=== PATIENT | male | born 1965 | race Caucasian/White ===

== ENCOUNTER 2018-02-24 13:31 | Emergency (ER) | payer OTHER ==
[~2018-02-24] VITALS: Ht 172.7 cm; Wt 83.6 kg
[2018-02-24 13:48] VITALS: Ht 172.7 cm; Wt 83.6 kg
[2018-02-24 15:02] LABS: BASOPHILS 0.2 % (0-2); EOSINOPHILS 1.2 % (0-7); HEMATOCRIT 47.6 % (42.0-54.0); HEMOGLOBIN 16.3 g/dL (13.5-17.5); IMMATURE GRANULOCYTES 0.6 % (0-5); LYMPHOCYTES 17.1 % (15-50); MCH 31.6 pg (26.0-34.0); MCHC 34.2 g/dL (31.0-37.0); MCV 92.2 fL (80.0-100.0); MEAN PLATELET VOLUME 10.1 fL (7.4-10.4); MONOCYTES 5.4 % (2-11); NEUTROPHILS 75.5 % (40-80); RBC 5.16 10x6/uL (4.20-6.10); RDW 14.9 % (11.5-14.5); WBC 15.2 10x3/uL (4.8-10.8)
[2018-02-24 15:04] LABS: PLATELET COUNT 249 10x3/uL (130-400)
[2018-02-24 15:27] LABS: ALBUMIN 3.3 g/dL (3.4-5.0); ALKALINE PHOSPHATASE 110 U/L (46-116); ALT (SGPT) 46 U/L (10-68); BILIRUBIN - TOTAL 0.28 mg/dL (0.2-1.3); CALC OSMOLALITY 277 mosm/kg (275-300); CALCIUM 8.9 mg/dL (8.5-10.1); CARBON DIOXIDE 23.8 mmol/L (21.0-32.0); CHLORIDE - SERUM 101 mmol/L (98-107); CREATININE - SERUM 0.8 mg/dL (0.6-1.3); GLUCOSE 117 mg/dL (74-106); POTASSIUM - SERUM 3.8 mmol/L (3.5-5.1); PROTEIN - SERUM 7.1 g/dL (6.4-8.2); SODIUM 138 mmol/L (136-145); UREA NITROGEN 14 mg/dL (7-18); eGFR NON AFRICAN AMERICAN > 90 mL/min (90-120)
[2018-02-24] MEDS ORDERED: VIBRAMYCIN 100100 MG PO (17:46)
[2018-02-24] MEDS ORDERED: TORADOL10 MG PO (17:46)
[2018-02-24 18:30] VITALS: BP 154/86
== END 2018-02-24 18:30 | disposition home or self-care (01) ==
LOC: D.ER 13:31
PROVIDERS: Emergency Medicine
DX: L02.415 Cutaneous abscess of right lower limb (principal); Z89.511 Acquired absence of right leg below knee; I10 Essential (primary) hypertension; F17.200 Nicotine dependence, unspecified, uncomplicated

== ENCOUNTER 2018-04-01 15:55 | Inpatient (IN) | payer OTHER ==
[~2018-04-01] VITALS: Ht 172.7 cm; Wt 83.9 kg
[~2018-04-01 15:55] MED LIST: TORADOL10 MG PO; VIBRAMYCIN 100100 MG PO
[2018-04-01] MEDS ORDERED: ENTOCORT EC3 MG PO (16:49)
[2018-04-01] MEDS ORDERED: FOLIC ACID1 MG PO ×2 (16:49→20:18)
[2018-04-01] MEDS ORDERED: VITAMIN B-12100 MCG PO (16:49)
[2018-04-01] MEDS ORDERED: BAYER ASPIRIN325 MG (16:49)
[2018-04-01] MEDS ORDERED: LIDODERM 5 %1 PATCH TRANSDERM (16:50)
[2018-04-01] MEDS ORDERED: LIDOCAINE50 GM TOPICAL (16:50)
[2018-04-01] MEDS ORDERED: NEURONTIN800 MG PO ×2 (16:50→20:16)
[2018-04-01] MEDS ORDERED: LISINOPRIL20 MG PO (16:50)
[2018-04-01] MEDS ORDERED: TOZAL SOFTGEL1 EACH PO (16:51)
[2018-04-01] MEDS ORDERED: ROBAXIN500 MG PO ×2 (16:51→20:18)
[2018-04-01] MEDS ORDERED: OMEPRAZOLE40 MG PO ×2 (16:51→20:19)
[2018-04-01] MEDS ORDERED: TRAZODONE HCL150 MG PO ×2 (16:52→20:13)
[2018-04-01 17:00] VITALS: BP 130/89
[2018-04-01 17:50] LABS: BASOPHILS 0.1 % (0-2); HEMOGLOBIN 16.3 g/dL (13.5-17.5); IMMATURE GRANULOCYTES 0.4 % (0-5); LYMPHOCYTES 14.5 % (15-50); MCHC 35.4 g/dL (31.0-37.0); MCV 90.4 fL (80.0-100.0); MEAN PLATELET VOLUME 10.7 fL (7.4-10.4); MONOCYTES 9.4 % (2-11); NEUTROPHILS 74.6 % (40-80); PLATELET COUNT 261 10x3/uL (130-400); RBC 5.09 10x6/uL (4.20-6.10); RDW 14.6 % (11.5-14.5); WBC 15.2 10x3/uL (4.8-10.8)
[2018-04-01 18:00] VITALS: BP 111/82
[2018-04-01 18:06] LABS: ALBUMIN 3.1 g/dL (3.4-5.0); ALKALINE PHOSPHATASE 115 U/L (46-116); ALT (SGPT) 37 U/L (10-68); BILIRUBIN - TOTAL 0.36 mg/dL (0.2-1.3); CALC OSMOLALITY 276 mosm/kg (275-300); CALCIUM 8.5 mg/dL (8.5-10.1); CARBON DIOXIDE 24.7 mmol/L (21.0-32.0); CHLORIDE - SERUM 100 mmol/L (98-107); CREATININE - SERUM 0.9 mg/dL (0.6-1.3); GLUCOSE 107 mg/dL (74-106); POTASSIUM - SERUM 3.7 mmol/L (3.5-5.1); SODIUM 138 mmol/L (136-145); UREA NITROGEN 15 mg/dL (7-18); eGFR NON AFRICAN AMERICAN > 90 mL/min (90-120)
--- NOTE | 2018-04-01 18:39 | NUR ---
PATIENTS RIGHT LOWER LEG CLEANED WITH WOUND CLENSER, DRESSED WITH TELFA X 3 AND PORTILLO.
--- NOTE | 2018-04-01 19:19 | NUR ---
REC'D FROM ER DEPT PER STRETCHER TO ROOM 2217 A 52 Y/O W/M PER SERVICES DR. ELIZABETH WITH MRSA INFECTION TO RT STUMP PT IS A RT BKA AMPUTATION WITH RED SORES AND SCABS NOTED. LARGE DRESSING NOTED TO STUMP WITH SMALL AMOUNT SEROUS DRAINAGE.. ASSESSMENT PER ADMIT PACKET. IV PATENT LEFT HAND OF NS AT 100CC'S/HR SITE CLEAR.
[2018-04-01] MEDS ORDERED: UCERIS PO (20:10)
[2018-04-01] MEDS ORDERED: ACETAMINOPHEN325 MG PO (20:12)
[2018-04-01] MEDS ORDERED: METHOTREXATE2.5 MG SQ (20:16)
[2018-04-01] MEDS ORDERED: LISINOPRIL40 MG PO (20:18)
--- NOTE | 2018-04-01 21:00 | NUR ---
REQUESTING SOME FOOD. SANDWICH TRAY AND SODA GIVEN TO PATIENT 100% CONSUMED.
[2018-04-01 21:36] VITALS: BP 121/87
[2018-04-01 23:07] VITALS: BP 121/87; BMI 28.1
--- NOTE | 2018-04-02 | NUR ---
EYES CLOSED RESPIRATIONS WITH EASE AND UNLABORED. SR UP X2 CALL LIGHT WITHIN REACH.
[2018-04-02 00:36] VITALS: BP 101/66
[2018-04-02 05:44] VITALS: BP 134/84
--- NOTE | 2018-04-02 06:49 | NUR ---
MEDS GIVEN PER MAR.
--- NOTE | 2018-04-02 07:12 | NUR ---
PATIENT RESTING WITH NO NEEDS VOICED, CL IN REACH
[2018-04-02 08:55] VITALS: BP 105/70
[2018-04-02 11:16] VITALS: Ht 172.7 cm; Wt 83.9 kg
--- NOTE | 2018-04-02 12:15 | NUR ---
PATIENT REFUSES SCD. HE IS UP INDEPENDENTLY TO WHEELCHAIR AND LOVENOX IS GIVEN
[2018-04-02 14:11] VITALS: BP 117/54
[2018-04-02 20:00] VITALS: BP 125/60
--- NOTE | 2018-04-02 23:05 | NUR ---
PT C/O RIGHT LEG PAIN 10/20. GAVE PERCOCET-5 AND ROBAXIN. ASSESSMENT COMPLETE PER FLOW-SHEET. DISCUSSED ISOLATION PRECAUTIONS WITH PT. NO OTHER NEEDS. WILL CONTINUE TO MONITOR.
[2018-04-03] VITALS: BP 126/77
[2018-04-03 04:00] VITALS: BP 106/69
--- NOTE | 2018-04-03 07:36 | HP ---
PATIENT: EUGENE ANN MEDICAL RECORD: [id number] ACCOUNT: [id number] LOCATION:[facility] : 65 ADMISSION DATE: 04/01/18 PCP: GONZALO, DOCTOR HISTORY AND PHYSICAL EXAMINATION REASON FOR ADMISSION: Fever and leg infections. 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 He said he has had trouble with some intermittent papules on his right lower extremity. Last 10 days, this has become more prominent, went to the [facility] clinic yesterday with low-grade fever to 101. He had some small abscesses on his legs and they sent him to the ED. Dr. Matias drained all of these in the ED and cultures were obtained and he was admitted for IV antibiotics. The patient states he had a similar episode a month or so ago and was treated in the Emergency Room and discharged. Denies any history of MRSA or recurrent infection. He had osteomyelitis of his right lower extremity years ago that required [id number] amputation. PAST MEDICAL HISTORY: Enteritis, small-bowel obstruction, terminal ileitis, chronic pain syndrome from left leg crush injury, history of seizure disorder, tobacco abuse, essential hypertension, GERD, osteoarthritis, neuropathy, rheumatoid arthritis. PAST SURGICAL HISTORY: Had history of loose bony pelvis. He had history of right foot surgery, developed osteomyelitis and required right BKA. He had history of spinal surgery and surgery for a left leg crush injury. SOCIAL HISTORY: He smokes 1 pack a day, used to smoke marijuana, was on methadone in the past for chronic pain, but off that now. 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 He has several children living in town. He is . He drinks 3-4 beers a day, but does not have an alcohol problem and has smoked marijuana in the past, none recently. FAMILY HISTORY: Father is living in good health. Mother in her 50s of unknown cause. HOME MEDICATIONS: Rheumatrex 2.5 mg one IU subQ weekly; Robaxin 500 mg p.o. b.i.d.; lisinopril 40 mg a day; aspirin 325 mg a day; gabapentin 800 mg t.i.d.; trazodone 150 mg p.o. at bedtime for sleep; omeprazole 40 mg p.o. daily; Entocort EC 3 mg capsule 3 p.o. daily; B12 100 mcg tablet p.o. daily; folic acid 1 mg p.o. daily; multivitamin 3 caps p.o. daily; Uceris 8 units p.o. daily. ALLERGIES: None known. REVIEW OF SYSTEMS: GENERAL: He had felt well until the last few days, he got low-grade fever yesterday, had good appetite. HEENT: No recent visual change, sinus congestion, or sore throat. RESPIRATORY: No SOB or cough. CARDIAC: No chest pain, PND, orthopnea, claudication, palpitations, or history of heart disease. GASTROINTESTINAL: No nausea, vomiting, change in stools or blood per rectum. GENITOURINARY: Nocturia once nightly. No dysuria. ENDOCRINE: Denies polyuria, polydipsia, heat or cold intolerance. HISTORY AND PHYSICAL [id number] EUGENE ANN NEUROLOGIC: No history of stroke. Has remote history of seizures, but none recently. He said his memory is poor. PSYCHIATRIC: Has intermittent depressed mood. INTEGUMENT: Red papules and pustules on his lower extremity over the last 10 days. MUSCULOSKELETAL: He has chronic lumbago, he had left and right lower leg pain. PHYSICAL EXAMINATION: VITAL SIGNS: Heart rate was 125, temperature is 99.0 Fahrenheit orally, respirations are 18, blood pressure is 141/82, O2 sat of 97%. GENERAL: The patient is alert and oriented. HEENT: Normocephalic. Eyes are clear. Oropharynx unremarkable. NECK: No bruits or masses. CHEST: Clear. HEART: Regular without murmur. ABDOMEN: Soft, no organomegaly. GENITOURINARY: Deferred. EXTREMITIES: He has a BKA on the right lower extremity. He has multiple papules and pustules on his stump and up above the knee. Some of these have dried scabs overlying them, some are fractioned, recently drained by Dr. Matias. His left lower extremity shows distal muscle atrophy below the knee, bowing of his tibia from obvious previous trauma. NEUROLOGIC: He is oriented to person, place, and time. Cranial nerves are grossly intact. Gait was not tested due to BKA. Reflexes 1+ throughout. He remembers 2 to 3 objects at 5 minutes. LABORATORY DATA: [place] [address] with normal diff, H&H is 16 and 46.0 respectively. BMP; glucose 107, nonfasting. Lactate was 2. Liver functions were normal. ASSESSMENT: 1. Cellulitis and abscess of the right lower extremity, possible methicillin-resistant Staphylococcus aureus. 2. Febrile illness. 3. Hypertension. 4. Chronic pain syndrome. 5. Remote history of osteomyelitis. 6. Remote seizure disorder, chronic pain. PLAN: The patient will be admitted. Cultures have been obtained of wound and blood. Placed on IV vancomycin with pharmacy to follow levels. Further workup pending clinical course. TRANSINT:[id number] Voice Confirmation ID: [id number] DOCUMENT ID: [id number] HISTORY AND PHYSICAL [id number] EUGENE ANN TIMOTHY MD at 0736 CC: [id number] DICTATION DATE: 04/02/18712 EVAPORATOR OPERATOR MOLASSES: 04/02/18 0815 ADM IN [place] [address] [place] [address]
[2018-04-03 08:40] VITALS: BP 111/72
--- NOTE | 2018-04-03 12:44 | MORECARE ---
CASE MANAGEMENT DISCHARGE SUMMARY PATIENT: EUGENE ANN UNIT: [id number] ADM DATE: 04/01/18 AGE: 52 : 65 SEX: M ROOM/BED: D.2217 AUTHOR: GLENN LU PHYSICIAN: REFERRING PHYSICIAN: MAX ELIZABETH MD DATE OF SERVICE: 04/03/18 Discharge Plan Patient Name: EUGENE ANN Facility: [facility]:[place] : 1965 Planned Disposition: Home Anticipated Discharge Date: Discharge Date: Expected LOS: Initial Reviewer: [email or web address] Initial Review Date: 04/01/2018 Generated: 04/03/18 1:44 pm Patient Name: EUGENE ANN Page 11028 at 1244 All edits/amendments must be made on the electronic document DICTATION DATE: 04/03/18 1243 BROOMMAKER: ASHLEE 04/03/18 1243 RPT#: [id number] DC DATE: STATUS: ADM IN [facility] [address] [place] [address] END OF REPORT
--- NOTE | 2018-04-03 12:51 | MORECARE ---
CASE MANAGEMENT DISCHARGE SUMMARY PATIENT: EUGENE ANN UNIT: [id number] ADM DATE: 04/01/18 AGE: 52 : 65 SEX: M ROOM/BED: D.2217 AUTHOR: GLENN LU PHYSICIAN: REFERRING PHYSICIAN: MAX ELIZABETH MD DATE OF SERVICE: 04/03/18 Discharge Plan Patient Name: EUGENE ANN [facility] [facility] 1965 Planned Disposition: Home Anticipated Discharge Date: Discharge Date: Expected LOS: Initial Reviewer: [email or web address] Initial Review Date: 04/01/2018 Generated: 04/03/18 1:51 pm DCPIA - Discharge Planning Initial Assessment Updated by [email or web address]: Armida Olguin on 04/03/18 12:47 pm * Is the patient Alert and Oriented? Yes * How many steps to enter\exit or inside your home? * [facility]CP [facility] * Preadmission Environment Home with Family * ADLs Independent * Equipment Cane Other Rolling Walker Wheelchair * Other Equipment PROSTHETIC * List name and contact numbers for known caregivers / representatives who currently or will assist patient after discharge: EDDY ANN (DAD) [phone] * Verbal permission to speak to the caregivers and representatives has been obtained from the patient. N/A * Community resources currently utilized None * Additional services required to return to the preadmission environment? No * Can the patient safely return to the preadmission environment? Yes * Has this patient been hospitalized within the prior 30 days at any hospital? No Last DP export: 04/03/18 11:44 a Patient Name: EUGENE ANN Page 08805 at 1251 All edits/amendments must be made on the electronic document DICTATION DATE: 04/03/18 1251 PLANT SUPERVISOR: ASHLEE 04/03/18 1251 RPT#: [id number] DC DATE: STATUS: ADM IN [facility] [address] [place] [address] END OF REPORT
--- NOTE | 2018-04-03 12:58 | MORECARE ---
CASE MANAGEMENT DISCHARGE SUMMARY PATIENT: EUGENE ANN UNIT: [id number] ADM DATE: 04/01/18 AGE: 52 : 65 SEX: M ROOM/BED: D.2217 AUTHOR: GLENN LU PHYSICIAN: REFERRING PHYSICIAN: MAX ELIZABETH MD DATE OF SERVICE: 04/03/18 Discharge Plan Patient Name: EUGENE ANN Facility: [facility]:[place] : 1965 Planned Disposition: Home Anticipated Discharge Date: Discharge Date: Expected LOS: Initial Reviewer: [email or web address] Initial Review Date: 04/01/2018 Generated: 04/03/18 1:58 pm Comments DCP- Discharge Planning Updated by [email or web address]: Armida Olguin on 04/03/18 11:[address] Patient Name: EUGENE ANN Admission Status: ER Accout number: [id number] Admission Date: 04-01-2018 : 1965 Admission Diagnosis: Attending: MAX ELIZABETH Current LOS: 2 Anticipated DC Date: Planned Disposition: Home Primary Insurance: [employer] Discharge Planning Comments: CM met with patient to complete initial dc planning assessment. CM educated patient on the CM role and verbal consent given by patient to complete assessment. Patient lives at home with his son and girlfriend. At discharge patient plans to return home and feels this is a safe discharge. CM discussed availability of home health, rehab services, and medical equipment. He has a walker, cane, wheelchair and prosthetic at home. Patient denied known discharge needs at this time. CM will continue to follow and will assist as needed with dc plans/needs. His dad will be his commercial trailer truck driver home. Plush Dresser: Armida Olguin DCPIA - Discharge Planning Initial Assessment Updated by [email or web address]: Armida Olguin on 04/03/18 12:47 pm * Is the patient Alert and Oriented? Yes * How many steps to enter\exit or inside your home? * PCP [facility] * Pharmacy [facility] * Preadmission Environment Home with Family * ADLs Independent * Equipment Cane Other Rolling Walker Wheelchair * Other Equipment PROSTHETIC * List name and contact numbers for known caregivers / representatives who currently or will assist patient after discharge: EDDY ANN (DAD) [phone] * Verbal permission to speak to the caregivers and representatives has been obtained from the patient. N/A * Community resources currently utilized None * Additional services required to return to the preadmission environment? No * Can the patient safely return to the preadmission environment? Yes * Has this patient been hospitalized within the prior 30 days at any hospital? No Last DP export: 04/03/18 11:51 a Patient Name: EUGENE ANN Page 61252 at 1258 All edits/amendments must be made on the electronic document DICTATION DATE: 04/03/18 1258 SILK SCREEN PROCESSOR: ASHLEE 04/03/18 1258 RPT#: [id number] DC DATE: STATUS: ADM IN [facility] [address] [place] [address] END OF REPORT
[2018-04-03 17:48] VITALS: BP 117/81; BP 127/83
--- NOTE | 2018-04-03 19:00 | NUR ---
PT ALERT AND ORIENTED WITH FAMILY IN ROOM. PATIENT HAS RIGHT BKA. UPON ASSESSMENT SCABS RED AND INFLAMMED WITH PUS FILLED SORES. SEVERAL, 10+. FAMILY MEMBER STATED "ITS OKAY TO POP THOSE LIKE A PIMPLE?" INSTRUCTED PATIENT AND FAMILY TO NOT TOUCH SORES AND THE LESS TOUCHING POSSIBLE THE BETTER TO AVOID FURTHERING INFLAMMATION AND IRRITATION ON SCAB/SORE SITES. CALL LIGHT IN REACH. PT LEFT FLOOR WITH FAMILY STATED HE WAS GOING FOR A "WALK."
[2018-04-03 22:16] VITALS: BP 125/59
--- NOTE | 2018-04-04 04:56 | NUR ---
PT WOKE HUNGRY. REQUESTED SANDWICH, PROVIDED PT WITH ONE. NO OTHER COMPLAINTS AT THIS TIME.
[2018-04-04 05:26] VITALS: BP 99/61
--- NOTE | 2018-04-04 06:50 | NUR ---
I CONCUR WITH CLEAN UP SUPERVISOR ASSESSMENT.
[2018-04-04 09:00] VITALS: BP 126/66
[2018-04-04] MEDS ORDERED: DOXYCYCLINE HY100 M2 PO (09:59)
[2018-04-04] MEDS ORDERED: BACTROBAN NASAL1 GM NASAL (09:59)
--- NOTE | 2018-04-04 10:46 | NUR ---
PT ESSIE OME, WENT OVER PT PAPERWORK AND FOLLOW UP APPOINTMENTS. ALL QUESTIONS ANSWERED
--- NOTE | 2018-04-07 17:18 | MORECARE ---
CASE MANAGEMENT DISCHARGE SUMMARY PATIENT: EUGENE ANN UNIT: [id number] ADM DATE: 04/01/18 AGE: 52 : 65 SEX: M ROOM/BED: D.2217 AUTHOR: GLENN LU PHYSICIAN: REFERRING PHYSICIAN: MAX ELIZABETH MD DATE OF SERVICE: 04/07/18 Discharge Plan Patient Name: EUGENE ANN Facility: [facility]:[place] : 1965 Planned Disposition: Home Anticipated Discharge Date: Discharge Date: 04/04/2018 Expected LOS: 0 Initial Reviewer: [email or web address] Initial Review Date: 04/01/2018 Generated: 04/07/18 6:17 pm Comments DCP- Discharge Planning Updated by [email or web address]: Armida Olguin on 04/03/18 11:[address] Patient Name: EUGENE ANN Admission Status: ER Accout number: [id number] Admission Date: 04-01-2018 : 1965 Admission Diagnosis: Attending: MAX ELIZABETH Current LOS: 2 Anticipated DC Date: Planned Disposition: Home Primary Insurance: [employer] Discharge Planning Comments: CM met with patient to complete initial dc planning assessment. CM educated patient on the CM role and verbal consent given by patient to complete assessment. Patient lives at home with his son and girlfriend. At discharge patient plans to return home and feels this is a safe discharge. CM discussed availability of home health, rehab services, and medical equipment. He has a walker, cane, wheelchair and prosthetic at home. Patient denied known discharge needs at this time. CM will continue to follow and will assist as needed with dc plans/needs. 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 Commercial Marketing Specialist: Armida Olguin DCPIA - Discharge Planning Initial Assessment Updated by [email or web address]: Armida Olguin on 04/03/18 12:47 pm * Is the patient Alert and Oriented? Yes * How many steps to enter\exit or inside your home? * PCP [facility] * Pharmacy [facility] * Preadmission Environment Home with Family * ADLs Independent * Equipment Cane Other Rolling Walker Wheelchair * Other Equipment PROSTHETIC * List name and contact numbers for known caregivers / representatives who currently or will assist patient after discharge: EDDY ANN (DAD) [phone] * Verbal permission to speak to the caregivers and representatives has been obtained from the patient. N/A * Community resources currently utilized None * Additional services required to return to the preadmission environment? No * Can the patient safely return to the preadmission environment? Yes * Has this patient been hospitalized within the prior 30 days at any hospital? No Last DP export: 04/03/18 11:58 a Patient Name: EUGENE ANN Page 20230 at 1718 All edits/amendments must be made on the electronic document DICTATION DATE: 04/07/181716 RESTAURANT CREW: ASHLEE 04/07/181716 RPT#: [id number] DC DATE:04/04/18 STATUS: DIS IN [facility] [address] [place] [address] END OF REPORT
== END 2018-04-04 10:47 | disposition home or self-care (01) | DRG 603 ==
LOC: D.ER 15:55 → D.MS 17:55
PROVIDERS: Emergency Medicine; ADMIT Family Medicine
PROC: 0H9HXZZ Drainage of Right Upper Leg Skin, External Approach (ICD-10-PCS; principal; 2018-04-01)
DX: L03.115 Cellulitis of right lower limb (principal); B95.62 Methicillin resistant Staphylococcus aureus infection as the cause of diseases classified elsewhere; I10 Essential (primary) hypertension; K21.9 Gastro-esophageal reflux disease without esophagitis; M06.9 Rheumatoid arthritis, unspecified; G89.4 Chronic pain syndrome; Z89.511 Acquired absence of right leg below knee

== ENCOUNTER 2018-05-24 11:38 | Emergency (ER) | payer OTHER ==
[~2018-05-24 11:38] MED LIST changes: +ACETAMINOPHEN325 MG PO; +BACTROBAN NASAL1 GM NASAL; +BAYER ASPIRIN325 MG; +DOXYCYCLINE HY100 M2 PO; +ENTOCORT EC3 MG PO; +FOLIC ACID1 MG PO; +LIDOCAINE50 GM TOPICAL; +LIDODERM 5 %1 PATCH TRANSDERM; +LISINOPRIL20 MG PO; +LISINOPRIL40 MG PO; +METHOTREXATE2.5 MG SQ; +NEURONTIN800 MG PO; +OMEPRAZOLE40 MG PO; +ROBAXIN500 MG PO; +TOZAL SOFTGEL1 EACH PO; +TRAZODONE HCL150 MG PO; +UCERIS PO; +VITAMIN B-12100 MCG PO
[2018-05-24 12:01] LABS: BASOPHILS 0.2 % (0-2); EOSINOPHILS 1.4 % (0-7); HEMATOCRIT 44.7 % (42.0-54.0); HEMOGLOBIN 15.6 g/dL (13.5-17.5); IMMATURE GRANULOCYTES 1.5 % (0-5); MCH 31.5 pg (26.0-34.0); MCHC 34.9 g/dL (31.0-37.0); MCV 90.3 fL (80.0-100.0); MEAN PLATELET VOLUME 9.7 fL (7.4-10.4); MONOCYTES 5.7 % (2-11); NEUTROPHILS 65.2 % (40-80); PLATELET COUNT 248 10x3/uL (130-400); RBC 4.95 10x6/uL (4.20-6.10); RDW 13.5 % (11.5-14.5); WBC 9.1 10x3/uL (4.8-10.8)
[2018-05-24 12:07] LABS: APPEARANCE CLEAR (CLEAR); BILIRUBIN NEGATIVE (NEGATIVE); COLOR STRAW (YELLOW); GLUCOSE NEGATIVE (NEGATIVE); KETONE NEGATIVE (NEGATIVE); NITRITE NEGATIVE (NEGATIVE); PROTEIN NEGATIVE (NEGATIVE); SPECIFIC GRAVITY 1.015 (1.005-1.020); UROBILINOGEN NORMAL (NORMAL)
[2018-05-24 12:16] LABS: ALBUMIN 2.9 g/dL (3.4-5.0); ALKALINE PHOSPHATASE 102 U/L (46-116); ALT (SGPT) 34 U/L (10-68); AMYLASE - SERUM 34 U/L (25-115); BILIRUBIN - TOTAL 0.21 mg/dL (0.2-1.3); CALC OSMOLALITY 276 mosm/kg (275-300); CALCIUM 8.3 mg/dL (8.5-10.1); CARBON DIOXIDE 25.3 mmol/L (21.0-32.0); CHLORIDE - SERUM 102 mmol/L (98-107); CREATININE - SERUM 0.9 mg/dL (0.6-1.3); GLUCOSE 122 mg/dL (74-106); LIPASE 104 U/L (73-393); POTASSIUM - SERUM 3.3 mmol/L (3.5-5.1); PROTEIN - SERUM 6.8 g/dL (6.4-8.2); SODIUM 137 mmol/L (136-145); UREA NITROGEN 18 mg/dL (7-18); eGFR NON AFRICAN AMERICAN > 90 mL/min (90-120)
[2018-05-24] MEDS ORDERED: FLAGYL500 MG PO (15:02)
== END 2018-05-24 15:51 | disposition home or self-care (01) ==
LOC: D.ER 11:38
PROVIDERS: Family Medicine
DX: K50.90 Crohn's disease, unspecified, without complications (principal)

== ENCOUNTER 2018-07-29 19:47 | Inpatient (IN) | payer MEDICARE ==
[~2018-07-29] VITALS: Ht 172.7 cm; Wt 90.7 kg
[~2018-07-29 19:47] MED LIST changes: +FLAGYL500 MG PO
[2018-07-29 20:23] LABS: APPEARANCE CLEAR (CLEAR); BILIRUBIN NEGATIVE (NEGATIVE); COLOR YELLOW (YELLOW); GLUCOSE NEGATIVE (NEGATIVE); KETONE NEGATIVE (NEGATIVE); NITRITE NEGATIVE (NEGATIVE); PROTEIN NEGATIVE (NEGATIVE); UROBILINOGEN NORMAL (NORMAL)
[2018-07-29 20:45] LABS: BASOPHILS 0.2 % (0-2); EOSINOPHILS 1.6 % (0-7); HEMATOCRIT 43.4 % (42.0-54.0); HEMOGLOBIN 15.2 g/dL (13.5-17.5); IMMATURE GRANULOCYTES 0.5 % (0-5); MCH 31.7 pg (26.0-34.0); MCV 90.6 fL (80.0-100.0); MEAN PLATELET VOLUME 10.4 fL (7.4-10.4); MONOCYTES 5.1 % (2-11); NEUTROPHILS 71.6 % (40-80); PLATELET COUNT 275 10x3/uL (130-400); RBC 4.79 10x6/uL (4.20-6.10); RDW 13.9 % (11.5-14.5); WBC 11.7 10x3/uL (4.8-10.8)
[2018-07-29 20:59] LABS: ALBUMIN 3.4 g/dL (3.4-5.0); ALKALINE PHOSPHATASE 115 U/L (46-116); ALT (SGPT) 59 U/L (10-68); BILIRUBIN - TOTAL 0.34 mg/dL (0.2-1.3); CALC OSMOLALITY 282 mosm/kg (275-300); CHLORIDE - SERUM 103 mmol/L (98-107); CREATININE - SERUM 0.9 mg/dL (0.6-1.3); GLUCOSE 112 mg/dL (74-106); POTASSIUM - SERUM 3.8 mmol/L (3.5-5.1); PROTEIN - SERUM 7.1 g/dL (6.4-8.2); SODIUM 141 mmol/L (136-145); UREA NITROGEN 14 mg/dL (7-18); eGFR NON AFRICAN AMERICAN > 90 mL/min (90-120)
[2018-07-29 21:00] LABS: AMYLASE - SERUM 34 U/L (25-115); LIPASE 101 U/L (73-393)
[2018-07-29 21:02] LABS: TROPONIN-I < 0.017 ng/mL (0.000-0.060)
--- NOTE | 2018-07-29 23:14 | NUR ---
report given to IVÁN Herrera using SBAR
[2018-07-30 00:41] VITALS: BP 139/87; BMI 30.4
[2018-07-30 05:23] VITALS: BP 141/97
--- NOTE | 2018-07-30 08:30 | NUR ---
SPOKE WITH BRANDAN FROM AND ASKED ABOUT PATIENT BEING TRANSFERRED TO [facility] PATIENT STATED HE USUALLY GOES THERE AND IS WORRIED ABOUT PAYMENT. BRANDAN STATED THAT IF THE PUT IN TRANSFER THAT WHILE HE WAS HERE IF HE WAS ON A LIST THAT IT WOULD BE COVERED. EXPLAINED TO PATIENT. VERBALIZED UNDERSTANDING. CALL LIGHT WITHIN REACH.
[2018-07-30 08:55] VITALS: BP 134/93
[2018-07-30 09:29] LABS: BASOPHILS 0 % (0-2); EOSINOPHILS 0 % (0-7); HEMATOCRIT 42.3 % (42.0-54.0); IMMATURE GRANULOCYTES 0.3 % (0-5); LYMPHOCYTES 7.6 % (15-50); MCH 32.2 pg (26.0-34.0); MCHC 35.5 g/dL (31.0-37.0); MCV 90.8 fL (80.0-100.0); MEAN PLATELET VOLUME 10.4 fL (7.4-10.4); MONOCYTES 0.5 % (2-11); NEUTROPHILS 91.6 % (40-80); PLATELET COUNT 256 10x3/uL (130-400); RBC 4.66 10x6/uL (4.20-6.10); WBC 13.5 10x3/uL (4.8-10.8)
[2018-07-30 09:44] LABS: CALC OSMOLALITY 279 mosm/kg (275-300); CALCIUM 8.8 mg/dL (8.5-10.1); CARBON DIOXIDE 24.9 mmol/L (21.0-32.0); CHLORIDE - SERUM 104 mmol/L (98-107); CREATININE - SERUM 0.9 mg/dL (0.6-1.3); GLUCOSE 159 mg/dL (74-106); MAGNESIUM - SERUM 1.9 mg/dL (1.8-2.4); PHOSPHOROUS 2.9 mg/dL (2.5-4.9); POTASSIUM - SERUM 4.3 mmol/L (3.5-5.1); SODIUM 138 mmol/L (136-145); UREA NITROGEN 14 mg/dL (7-18); eGFR NON AFRICAN AMERICAN > 90 mL/min (90-120)
[2018-07-30 12:24] VITALS: BP 151/86
--- NOTE | 2018-07-30 13:00 | NUR ---
UNABLE TO OBTAIN MED REC FROM PATIENT GETS MEDS MAILED FROM [place] AND UNSURE OF THE LIST. ASKED PATIENT TO ASK HIS IF SHE COULD BRING THEM AND HE STATED THAT IT WOULD BE HARD FOR HER TO DO IT BUT HE WOULD TRY.
[2018-07-30 14:32] VITALS: Ht 172.7 cm; Wt 90.7 kg
--- NOTE | 2018-07-30 15:13 | NUR ---
PATIENT DECLINED TO GIVE URINE SAMPLE AT THIS TIME.
[2018-07-30 17:34] VITALS: BP 143/83
[2018-07-30 20:00] VITALS: BP 127/82
--- NOTE | 2018-07-30 21:27 | NUR ---
PT ALERT & ORIENTED. PT TRANSFERS SELF TO WHEELCHAIR. DENIES PAIN. FSBS 125 - NO INSULIN GIVEN PER SS. NO OTHER NEEDS. WILL CONTINUE TO MONITOR.
[2018-07-31] VITALS: BP 113/68
[2018-07-31 04:00] VITALS: BP 130/76
[2018-07-31 08:00] VITALS: BP 146/99
[2018-07-31 08:44] LABS: BASOPHILS 0 % (0-2); EOSINOPHILS 0 % (0-7); HEMATOCRIT 39.3 % (42.0-54.0); IMMATURE GRANULOCYTES 0.3 % (0-5); LYMPHOCYTES 8.3 % (15-50); MCH 32.1 pg (26.0-34.0); MCHC 35.6 g/dL (31.0-37.0); MCV 90.1 fL (80.0-100.0); MEAN PLATELET VOLUME 10.4 fL (7.4-10.4); MONOCYTES 1.4 % (2-11); PLATELET COUNT 253 10x3/uL (130-400); RBC 4.36 10x6/uL (4.20-6.10); RDW 13.9 % (11.5-14.5); WBC 14.6 10x3/uL (4.8-10.8)
[2018-07-31 09:29] LABS: CALC OSMOLALITY 284 mosm/kg (275-300); CHLORIDE - SERUM 107 mmol/L (98-107); CREATININE - SERUM 0.8 mg/dL (0.6-1.3); GLUCOSE 154 mg/dL (74-106); POTASSIUM - SERUM 3.9 mmol/L (3.5-5.1); SODIUM 141 mmol/L (136-145); UREA NITROGEN 15 mg/dL (7-18); eGFR NON AFRICAN AMERICAN > 90 mL/min (90-120)
[2018-07-31] MEDS ORDERED: FLAGYL500 MG PO (09:42)
[2018-07-31] MEDS ORDERED: LEVOFLOXACIN500 MG PO (09:42)
[2018-07-31] MEDS ORDERED: PREDNISONE10 MG PO (09:45)
--- NOTE | 2018-07-31 10:00 | NUR ---
IV DCD WITH CATH TIP INTACT. WAITING ON DISCHARGE PAPERS
--- NOTE | 2018-07-31 10:10 | MORECARE ---
CASE MANAGEMENT DISCHARGE SUMMARY PATIENT: EUGENE ANN UNIT: [id number] ADM DATE: 07/30/18 AGE: 52 : 65 SEX: M ROOM/BED: D.2224 AUTHOR: ALY,DOC PHYSICIAN: REFERRING PHYSICIAN: LEBRON JEAN-BAPTISTE MD DATE OF SERVICE: 07/31/18 Discharge Plan Patient Name: EUGENE ANN Facility: [facility]:[place] : 1965 Planned Disposition: Home Anticipated Discharge Date: Discharge Date: Expected LOS: Initial Reviewer: [email or web address] Initial Review Date: 07/31/2018 Generated: 07/31/18 11:09 am Comments DCP- Discharge Planning Updated by [email or web address]: Ekta Miller on 07/31/18 9:[address] Patient Name: EUGENE ANN Admission Status: ER Accout number: [id number] Admission Date: 07-30-2018 : 1965 Admission Diagnosis: Attending: LEBRON JEAN-BAPTISTE Current LOS: 1 Anticipated DC Date: Planned Disposition: Home Primary Insurance: MEDICARE PART A ONLY Discharge Planning Comments: CM met with patient to complete initial dc planning assessment. CM educated patient on the CM role and verbal consent given by patient to complete assessment. Patient lives at home with his girlfriend and 20 year old son. At discharge patient plans to return and feels this is a safe discharge. CM discussed availability of home health, rehab services, and medical equipment. Patient denied known discharge needs at this time. [facility] to [facility]. CM will continue to follow and will assist as needed with dc plans/needs Admissions Nurse: Ekta Miller DCP- Discharge Planning Updated by [email or web address]: Ekta Miller on 07/30/18 7:[address] I received notice from the patient that he is a VA patient and wanted us to notify the VA that he was here. I called the VA retail account manager and spoke to Janet at [phone] and informed that he was here under observation status and requested transfer. I informed the patient of the call. CM will continue to follow and assist with discharge planning/needs. DCPIA - Discharge Planning Initial Assessment Updated by [email or web address]: Ekta Angela on 07/31/18 10:07 am * Is the patient Alert and Oriented? Yes * How many steps to enter\exit or inside your home? 0/0 * PCP [facility] clinic * Pharmacy [facility] all medicine from the [facility] * Preadmission Environment Home with Family * ADLs Partial Dependent * Partial ADLs (Assistance needed) Ambulation * Equipment Walker Wheelchair * List name and contact numbers for known caregivers / representatives who currently or will assist patient after discharge: Kevin Ann - dad - [phone] * Verbal permission to speak to the caregivers and representatives has been obtained from the patient. Yes * Community resources currently utilized [place] [facility] * Please name any agencies selected above. [facility] * Additional services required to return to the preadmission environment? No * Can the patient safely return to the preadmission environment? Yes * Has this patient been hospitalized within the prior 30 days at any hospital? No Patient Name: SETH EUGENE Page 16785 at 1010 All edits/amendments must be made on the electronic document DICTATION DATE: 07/31/18 1009 SHEATHER: ASHLEE 07/31/18 1009 RPT#: [id number] DC DATE: STATUS: ADM IN [facility] [address] [place] [address] END OF REPORT
--- NOTE | 2018-07-31 10:53 | MORECARE ---
CASE MANAGEMENT DISCHARGE SUMMARY PATIENT: EUGENE ANN UNIT: [id number] ADM DATE: 07/30/18 AGE: 52 : 65 SEX: M ROOM/BED: D.2224 AUTHOR: ALY,DOC PHYSICIAN: REFERRING PHYSICIAN: LEBRON JEAN-BAPTISTE MD DATE OF SERVICE: 07/31/18 Discharge Plan Patient Name: EUGENE ANN Facility: [facility]:[place] : 1965 Planned Disposition: Home Anticipated Discharge Date: Discharge Date: Expected LOS: Initial Reviewer: [email or web address] Initial Review Date: 07/31/2018 Generated: 07/31/18 11:52 am Comments DCP- Discharge Planning Updated by [email or web address]: Ekta Miller on 07/31/18 9:[address] Patient Name: EUGENE ANN Admission Status: ER Accout number: [id number] Admission Date: 07-30-2018 : 1965 Admission Diagnosis: Attending: LEBRON JEAN-BAPTISTE Current LOS: 1 Anticipated DC Date: Planned Disposition: Home Primary Insurance: MEDICARE PART A ONLY Discharge Planning Comments: CM met with patient to complete initial dc planning assessment. CM educated patient on the CM role and verbal consent given by patient to complete assessment. Patient lives at home with his girlfriend and 20 year old son. At discharge patient plans to return and feels this is a safe discharge. CM discussed availability of home health, rehab services, and medical equipment. Patient denied known discharge needs at this time. States [facility]. Clinical faxed to [facility]. CM will continue to follow and will assist as needed with dc plans/needs Tetryl Wringer Operator: Ekta Miller DCP- Discharge Planning Updated by [email or web address]: Ekta Miller on 07/30/18 7:[address] I received notice from the patient that he is a VA patient and wanted us to notify the VA that he was here. I called the VA supervisor nuclear medicine and spoke to Janet at [phone] and informed that he was here under observation status and requested transfer. I informed the patient of the call. CM will continue to follow and assist with discharge planning/needs. DCPIA - Discharge Planning Initial Assessment Updated by [email or web address]: Ekta Angela on 07/31/18 10:07 am * Is the patient Alert and Oriented? Yes * How many steps to enter\exit or inside your home? 0/0 * PCP [facility] clinic * Pharmacy Gets all medicine from the VA * Preadmission Environment Home with Family * ADLs Partial Dependent * Partial ADLs (Assistance needed) Ambulation * Equipment Walker Wheelchair * List name and contact numbers for known caregivers / representatives who currently or will assist patient after discharge: Kevin Ann - dad - [phone] * Verbal permission to speak to the caregivers and representatives has been obtained from the patient. Yes * Community resources currently utilized [place] [facility] * Please name any agencies selected above. [facility] * Additional services required to return to the preadmission environment? No * Can the patient safely return to the preadmission environment? Yes * Has this patient been hospitalized within the prior 30 days at any hospital? No External Providers External Provider: OTHER-OTHER Next Contact Date: Service Request Date: Service Type: Resolution: Reviewer: Comments: Last DP export: 07/31/18 9:09 a Patient Name: LAMBERT ANNN Page 54993 at 1053 All edits/amendments must be made on the electronic document DICTATION DATE: 07/31/181051 CLUB FORMER: ASHLEE 07/31/181051 RPT#: [id number] DC DATE: STATUS: ADM IN [facility] [address] [place] [address] END OF REPORT
--- NOTE | 2018-07-31 10:56 | NUR ---
DISCHARGE INSRTUCTIONS GIVEN. SEEMS TO UNDERSTAND. IV OUT TIP INTACT LEFT WITH HOSPITAL STAFF TO GO HOME IN PERSONAL RIDE.
--- NOTE | 2018-07-31 11:08 | MORECARE ---
CASE MANAGEMENT DISCHARGE SUMMARY PATIENT: EUGENE ANN UNIT: [id number] ADM DATE: 07/30/18 AGE: 52 : 65 SEX: M ROOM/BED: D.2224 AUTHOR: GLENN LU PHYSICIAN: REFERRING PHYSICIAN: LERBON JEAN-BAPTISTE MD DATE OF SERVICE: 07/31/18 Discharge Plan Patient Name: EUGENE ANN Facility: [facility]:[place] : 1965 Planned Disposition: Home Anticipated Discharge Date: Discharge Date: 07/31/2018 Expected LOS: Initial Reviewer: [email or web address] Initial Review Date: 07/31/2018 Generated: 07/31/18 12:07 pm Comments DCP- Discharge Planning Updated by [email or web address]: Ekta Miller on 07/31/18 10:[address] Received discharge orders. I gave him coupons for [facility] and [facility] from [employer] for medications. I informed him his doctor is here and can hand write prescriptions and he can get them where he wants. He states he is going to the [facility] to get [facility]. I told them they have gone to [employer], but if he can wait until getting hand RX he can get them at the [facility]. He refuses to wait on hand written Rx. Bethel himself out to his truck. I have faxed discharge med list to the [facility]. DCP- Discharge Planning Updated by [email or web address]: Ekta Miller on 07/31/18 9:[address] Patient Name: EUGENE ANN Admission Status: ER Accout number: [id number] Admission Date: 07-30-2018 : 1965 Admission Diagnosis: Attending: LEBRON JEAN-BAPTISTE Current LOS: 1 Anticipated DC Date: Planned Disposition: Home Primary Insurance: MEDICARE PART A ONLY Discharge Planning Comments: CM met with patient to complete initial dc planning assessment. CM educated patient on the CM role and verbal consent given by patient to complete assessment. Patient lives at home with his girlfriend and 20 year old son. At discharge patient plans to return and feels this is a safe discharge. CM discussed availability of home health, rehab services, and medical equipment. Patient denied known discharge needs at this time. [facility] to [facility]. CM will continue to follow and will assist as needed with dc plans/needs Documentation Manager: Ekta Angela DCP- Discharge Planning Updated by [email or web address]: Ekta Huireji on 07/30/18 7:[address] I received notice from the patient that he is a [facility] patient and wanted us to notify the [facility] that [facility] was here. [facility] and spoke to Janet at [phone] and informed that he was here under observation status and requested transfer. I informed the patient of the call. CM will continue to follow and assist with discharge planning/needs. DCPIA - Discharge Planning Initial Assessment Updated by [email or web address]: Ekta Miller on 07/31/18 10:07 am * Is the patient Alert and Oriented? Yes * How many steps to enter\exit or inside your home? 0/0 * [facility] * [facility] * Preadmission Environment Home with Family * ADLs Partial Dependent * Partial ADLs (Assistance needed) Ambulation * Equipment Walker Wheelchair * List name and contact numbers for known caregivers / representatives who currently or will assist patient after discharge: Kevin Ann - dad - [phone] * Verbal permission to speak to the caregivers and representatives has been obtained from the patient. Yes * Community resources currently utilized [facility] * Please name any agencies selected above. [facility] clinic * Additional services required to return to the preadmission environment? No * Can the patient safely return to the preadmission environment? Yes * Has this patient been hospitalized within the prior 30 days at any hospital? No Last DP export: 07/31/18 9:52 a Patient Name: LAMBERT ANNN Page [id number] at 1108 All edits/amendments must be made on the electronic document DICTATION DATE: 07/31/181106 MACHINE OPERATOR HOP PICKER: ASHLEE 07/31/181106 RPT#: [id number] DC DATE:07/31/18 STATUS: DIS IN [facility] [address] [place] [address] END OF REPORT
== END 2018-07-31 10:57 | disposition home or self-care (01) | DRG 386 ==
LOC: D.ER 19:47 → D.MS 23:20 → OBSVTIME 23:20 → D.MS 07-30 12:22
PROVIDERS: Emergency Medicine; ADMIT Internal Medicine Nephrology; ATTEND Internal Medicine Nephrology
DX: K50.018 Crohn's disease of small intestine with other complication (principal); K56.600 Partial intestinal obstruction, unspecified as to cause; K56.7 Ileus, unspecified; F17.213 Nicotine dependence, cigarettes, with withdrawal; K59.09 Other constipation; E11.9 Type 2 diabetes mellitus without complications

== ENCOUNTER 2018-12-24 21:37 | Emergency (ER) | payer OTHER ==
[~2018-12-24] VITALS: Ht 172.7 cm; Wt 90.9 kg
[~2018-12-24 21:37] MED LIST changes: +LEVOFLOXACIN500 MG PO; +PREDNISONE10 MG PO
[2018-12-24 21:53] VITALS: Ht 172.7 cm; Wt 90.9 kg
[2018-12-24 22:55] LABS: APPEARANCE CLEAR (CLEAR); BASOPHILS 0.1 % (0-2); BILIRUBIN NEGATIVE (NEGATIVE); COLOR STRAW (YELLOW); GLUCOSE NEGATIVE (NEGATIVE); HEMATOCRIT 47.3 % (42.0-54.0); IMMATURE GRANULOCYTES 0.3 % (0-5); KETONE NEGATIVE (NEGATIVE); LYMPHOCYTES 19.6 % (15-50); MCHC 33.8 g/dL (31.0-37.0); MCV 91.7 fL (80.0-100.0); MEAN PLATELET VOLUME 10.5 fL (7.4-10.4); MONOCYTES 4.4 % (2-11); NEUTROPHILS 74.6 % (40-80); NITRITE NEGATIVE (NEGATIVE); PROTEIN NEGATIVE (NEGATIVE); RBC 5.16 10x6/uL (4.20-6.10); RDW 13.6 % (11.5-14.5); SPECIFIC GRAVITY 1.005 (1.005-1.020); UROBILINOGEN NORMAL (NORMAL); WBC 14.4 10x3/uL (4.8-10.8)
[2018-12-24 23:01] LABS: PLATELET COUNT 307 10x3/uL (130-400)
[2018-12-24 23:09] LABS: CALC OSMOLALITY 272 mosm/kg (275-300); CALCIUM 8.9 mg/dL (8.5-10.1); CARBON DIOXIDE 26.2 mmol/L (21.0-32.0); CHLORIDE - SERUM 102 mmol/L (98-107); CREATININE - SERUM 0.9 mg/dL (0.6-1.3); POTASSIUM - SERUM 3.8 mmol/L (3.5-5.1); SODIUM 137 mmol/L (136-145); UREA NITROGEN 10 mg/dL (7-18); eGFR NON AFRICAN AMERICAN > 90 mL/min (90-120)
[2018-12-24 23:10] LABS: GLUCOSE 99 mg/dL (74-106)
[2018-12-24 23:20] LABS: ALBUMIN 3.4 g/dL (3.4-5.0); ALKALINE PHOSPHATASE 105 U/L (46-116); ALT (SGPT) 65 U/L (10-68); AMYLASE - SERUM 20 U/L (25-115); BILIRUBIN - TOTAL 0.29 mg/dL (0.2-1.3); LIPASE 62 U/L (73-393); PROTEIN - SERUM 7.4 g/dL (6.4-8.2); TROPONIN-I < 0.017 ng/mL (0.000-0.060)
[2018-12-25 03:57] VITALS: BP 160/73
== END 2018-12-25 03:58 | disposition short-term general hospital (02) ==
LOC: D.ER 21:37
PROVIDERS: Family Medicine
DX: K56.609 Unspecified intestinal obstruction, unspecified as to partial versus complete obstruction (principal); R10.9 Unspecified abdominal pain; K52.9 Noninfective gastroenteritis and colitis, unspecified; E11.9 Type 2 diabetes mellitus without complications; K50.90 Crohn's disease, unspecified, without complications; F17.210 Nicotine dependence, cigarettes, uncomplicated

== ENCOUNTER 2019-10-04 11:58 | Inpatient (IN) | payer OTHER ==
[~2019-10-04] VITALS: Ht 172.7 cm; Wt 90.7 kg
[2019-10-04 13:21] LABS: CALC OSMOLALITY 269 mosm/kg (275-300); CALCIUM 9.2 mg/dL (8.5-10.1); CARBON DIOXIDE 24.1 mmol/L (21.0-32.0); CHLORIDE - SERUM 102 mmol/L (98-107); CREATININE - SERUM 0.9 mg/dL (0.6-1.3); GLUCOSE 111 mg/dL (74-106); POTASSIUM - SERUM 3.8 mmol/L (3.5-5.1); SODIUM 134 mmol/L (136-145); UREA NITROGEN 14 mg/dL (7-18); eGFR NON AFRICAN AMERICAN > 90 mL/min (90-120)
[2019-10-04 13:22] LABS: BASOPHILS 0.1 % (0-2); EOSINOPHILS 0.2 % (0-7); HEMOGLOBIN 16.4 g/dL (13.5-17.5); IMMATURE GRANULOCYTES 0.4 % (0-5); LYMPHOCYTES 10.8 % (15-50); MCH 30.3 pg (26.0-34.0); MCHC 33.5 g/dL (31.0-37.0); MCV 90.4 fL (80.0-100.0); MEAN PLATELET VOLUME 9.8 fL (7.4-10.4); MONOCYTES 6.5 % (2-11); PLATELET COUNT 357 10x3/uL (130-400); RBC 5.42 10x6/uL (4.20-6.10); RDW 14.9 % (11.5-14.5); WBC 16.8 10x3/uL (4.8-10.8)
[2019-10-04 13:30] VITALS: BP 152/88
[2019-10-04 13:30] LABS: ALBUMIN 3.3 g/dL (3.4-5.0); ALKALINE PHOSPHATASE 74 U/L (30-120); ALT (SGPT) 29 U/L (10-68); AMYLASE - SERUM 26 U/L (25-115); BILIRUBIN - TOTAL 0.59 mg/dL (0.2-1.3); LIPASE 59 U/L (73-393); PROTEIN - SERUM 6.8 g/dL (6.4-8.2)
[2019-10-04 13:32] LABS: TROPONIN-I < 0.017 ng/mL (0.000-0.060)
[2019-10-04 14:00] VITALS: BP 158/93
[2019-10-04 15:30] VITALS: BP 148/77
[2019-10-04 16:40] LABS: BILIRUBIN NEGATIVE (NEGATIVE); KETONE NEGATIVE (NEGATIVE); NITRITE NEGATIVE (NEGATIVE); UROBILINOGEN NORMAL (NORMAL)
[2019-10-04 20:16] LABS: UDS - AMPHET POSITIVE QUAL (NEGATIVE); UDS - BARB NEGATIVE QUAL (NEGATIVE); UDS - BENZO NEGATIVE QUAL (NEGATIVE); UDS - COCAINE NEGATIVE QUAL (NEGATIVE); UDS - OPIATE POSITIVE QUAL (NEGATIVE); UDS - PCP NEGATIVE QUAL (NEGATIVE); UDS - THC POSITIVE QUAL (NEGATIVE)
[2019-10-04 20:59] LABS: APTT 27.7 SECONDS (22.8-39.4); INR 0.88 (0.85-1.17); PROTIME 11.9 SECONDS (11.6-15.0)
[2019-10-04] MEDS ORDERED: NEURONTIN 300300 MG PO (21:56)
[2019-10-04] MEDS ORDERED: GABAPENTIN100 MG PO ×2 (21:58→21:59)
[2019-10-04 22:13] VITALS: BP 144/90; BMI 30.4
[2019-10-05] VITALS: BP 117/76; BP 149/88
[2019-10-05 04:00] VITALS: BP 127/84
[2019-10-05 05:47] LABS: BASOPHILS 0.1 % (0-2); HEMATOCRIT 46.8 % (42.0-54.0); HEMOGLOBIN 15.4 g/dL (13.5-17.5); IMMATURE GRANULOCYTES 0.5 % (0-5); LYMPHOCYTES 13.7 % (15-50); MCH 30.1 pg (26.0-34.0); MCHC 32.9 g/dL (31.0-37.0); MCV 91.4 fL (80.0-100.0); MEAN PLATELET VOLUME 10.5 fL (7.4-10.4); MONOCYTES 6.6 % (2-11); NEUTROPHILS 78.1 % (40-80); PLATELET COUNT 304 10x3/uL (130-400); RBC 5.12 10x6/uL (4.20-6.10); RDW 15.1 % (11.5-14.5); WBC 15.4 10x3/uL (4.8-10.8)
[2019-10-05 06:29] LABS: ALBUMIN 2.9 g/dL (3.4-5.0); ALKALINE PHOSPHATASE 71 U/L (30-120); BILIRUBIN - TOTAL 0.58 mg/dL (0.2-1.3); CALC OSMOLALITY 267 mosm/kg (275-300); CARBON DIOXIDE 22.8 mmol/L (21.0-32.0); CHLORIDE - SERUM 103 mmol/L (98-107); CREATININE - SERUM 0.8 mg/dL (0.6-1.3); GLUCOSE 94 mg/dL (74-106); PHOSPHOROUS 2.4 mg/dL (2.5-4.9); PROTEIN - SERUM 6.1 g/dL (6.4-8.2); SODIUM 134 mmol/L (136-145); UREA NITROGEN 13 mg/dL (7-18); eGFR NON AFRICAN AMERICAN > 90 mL/min (90-120)
[2019-10-05 06:34] LABS: ALT (SGPT) 21 U/L (10-68)
--- NOTE | 2019-10-05 09:17 | NUR ---
HE IS SLEEPING. ASKING WHEN HE CAN EAT. DR. DELGADILLO SAW HIM THIS MORNING. THE CALL LIGHT IS WITHIN REACH AND HIS FAMILY IS AT THE BEDSIDE.
[2019-10-05 10:04] VITALS: BP 131/83
[2019-10-05 11:23] VITALS: Ht 172.7 cm; Wt 90.7 kg
[2019-10-05 13:46] VITALS: BP 121/78
[2019-10-05 18:33] VITALS: BP 122/87
[2019-10-05 20:00] VITALS: BP 120/83
[2019-10-06 04:00] VITALS: BP 108/63
[2019-10-06 06:15] LABS: BASOPHILS 0 % (0-2); EOSINOPHILS 0.1 % (0-7); HEMATOCRIT 45.5 % (42.0-54.0); HEMOGLOBIN 15.1 g/dL (13.5-17.5); IMMATURE GRANULOCYTES 0.2 % (0-5); LYMPHOCYTES 6.2 % (15-50); MCH 30.2 pg (26.0-34.0); MCHC 33.2 g/dL (31.0-37.0); MEAN PLATELET VOLUME 10.1 fL (7.4-10.4); MONOCYTES 1.1 % (2-11); NEUTROPHILS 92.4 % (40-80); PLATELET COUNT 300 10x3/uL (130-400); RDW 14.8 % (11.5-14.5); WBC 12.6 10x3/uL (4.8-10.8)
--- NOTE | 2019-10-06 07:23 | NUR ---
PATIENT IS FORGETFULL. ON ROOM AIR. IV TO RIGHT AC WITH NS AT 125 FSBS PER ORDERS. CALL LIGHT IN REACH. NPO PER ORDERS
[2019-10-06 07:57] LABS: ALBUMIN 3.1 g/dL (3.4-5.0); ALKALINE PHOSPHATASE 75 U/L (30-120); ALT (SGPT) 22 U/L (10-68); BILIRUBIN - TOTAL 0.47 mg/dL (0.2-1.3); CALC OSMOLALITY 273 mosm/kg (275-300); CALCIUM 8.8 mg/dL (8.5-10.1); CARBON DIOXIDE 22.5 mmol/L (21.0-32.0); CHLORIDE - SERUM 103 mmol/L (98-107); CREATININE - SERUM 0.7 mg/dL (0.6-1.3); GLUCOSE 124 mg/dL (74-106); MAGNESIUM - SERUM 2.2 mg/dL (1.8-2.4); POTASSIUM - SERUM 4.5 mmol/L (3.5-5.1); PROTEIN - SERUM 6.2 g/dL (6.4-8.2); SODIUM 136 mmol/L (136-145); UREA NITROGEN 14 mg/dL (7-18); eGFR NON AFRICAN AMERICAN > 90 mL/min (90-120)
--- NOTE | 2019-10-06 08:16 | NUR ---
HE IS ASKING WHY HE CAN NOT EAT, HE HAS SHORT TERM MEMORY LOSS. I EDUCATED HIM AGAIN ABOUT WHY HE CAN NOT EAT AND HIS STOMACH. THE CALL LIGHT IS WITHIN REACH.
[2019-10-06 09:55] VITALS: BP 144/101
[2019-10-06 13:46] VITALS: BP 138/67
--- NOTE | 2019-10-06 17:05 | NUR ---
I SPOKE WITH VIVIAN REGARDING THE CONSULT FOR DR. ALMARAZ.
[2019-10-06 18:10] VITALS: BP 128/82
[2019-10-06 20:00] VITALS: BP 138/83
[2019-10-07] VITALS: BP 134/79
[2019-10-07 04:00] VITALS: BP 147/95
[2019-10-07 06:55] LABS: BASOPHILS 0 % (0-2); EOSINOPHILS 0 % (0-7); HEMATOCRIT 40.6 % (42.0-54.0); HEMOGLOBIN 13.7 g/dL (13.5-17.5); IMMATURE GRANULOCYTES 0.2 % (0-5); LYMPHOCYTES 6.1 % (15-50); MCH 30.7 pg (26.0-34.0); MCHC 33.7 g/dL (31.0-37.0); MONOCYTES 1.8 % (2-11); NEUTROPHILS 91.9 % (40-80); PLATELET COUNT 293 10x3/uL (130-400); RBC 4.46 10x6/uL (4.20-6.10); RDW 14.7 % (11.5-14.5)
[2019-10-07 06:56] LABS: WBC 16.6 10x3/uL (4.8-10.8)
[2019-10-07 07:14] LABS: ALBUMIN 2.6 g/dL (3.4-5.0); ALKALINE PHOSPHATASE 67 U/L (30-120); ALT (SGPT) 19 U/L (10-68); BILIRUBIN - TOTAL 0.32 mg/dL (0.2-1.3); CALC OSMOLALITY 279 mosm/kg (275-300); CALCIUM 7.9 mg/dL (8.5-10.1); CHLORIDE - SERUM 109 mmol/L (98-107); CREATININE - SERUM 0.7 mg/dL (0.6-1.3); GLUCOSE 132 mg/dL (74-106); MAGNESIUM - SERUM 1.9 mg/dL (1.8-2.4); POTASSIUM - SERUM 3.9 mmol/L (3.5-5.1); PROTEIN - SERUM 5.5 g/dL (6.4-8.2); SODIUM 139 mmol/L (136-145); UREA NITROGEN 13 mg/dL (7-18); eGFR NON AFRICAN AMERICAN > 90 mL/min (90-120)
--- NOTE | 2019-10-07 08:06 | NUR ---
AWAKE AND ALERT. ORIENTED X3. LUNGS ARE CLEAR BILATERALLY, NO COUGH NOTED. SKIN IS INTACT WITHOUT REDNESS. IV TO RIGHT FOREARM IS PATENT WITHOUT REDNESS AT INSERTION SITE. REPORTS NO BM AT THIS TIME. DENIES NEEDS.
[2019-10-07 09:12] VITALS: BP 162/90
--- NOTE | 2019-10-07 10:00 | NUR ---
RESTING QUIETLY IN BED. ANXIOUS TO GO HOME. DR. DELGADILLO HERE AND OK FOR D/C. EXPLAINED NEED FOR ALL PHYSICIANS TO AGREE AND WE WOULD HAVE TO WAIT. PATIENT VERBALIZED UNDERSTADING OF SAME.
--- NOTE | 2019-10-07 12:10 | NUR ---
FSBS 106. NO COVERAGE REQUIRED. REAL FOOD SERVED FOR LUNCH.
[2019-10-07 13:02] VITALS: BP 154/95
[2019-10-07] MEDS ORDERED: FLAGYL500 MG PO (15:06)
[2019-10-07] MEDS ORDERED: PREDNISONE10 MG PO (15:07)
--- NOTE | 2019-10-07 16:05 | NUR ---
DISCHARGED TO HOME AMBULATORY PER SELF. DISCHARGE INSTRUCTIONS GIVEN BOTH VERBALLY AND WRITTEN. ALL QUESTIONS ANSWERED. PATIENT VERBALIZED UNDERSTANDING OF SAME. IV TO RIGHT FOREARM D/C WITH CATHETER INTACT. ALL BELONGINGS WITH PATIENT.
== END 2019-10-07 16:07 | disposition home or self-care (01) | DRG 386 ==
LOC: D.ER 11:58 → D.MS 17:03 → D.ER 20:13 → D.MS 10-07 16:07
PROVIDERS: Family Medicine; ADMIT Family Medicine; ATTEND Family Medicine
DX: K50.012 Crohn's disease of small intestine with intestinal obstruction (principal); E87.1 Hypo-osmolality and hyponatremia; K52.9 Noninfective gastroenteritis and colitis, unspecified; E11.65 Type 2 diabetes mellitus with hyperglycemia; D72.829 Elevated white blood cell count, unspecified; Z89.511 Acquired absence of right leg below knee; F17.200 Nicotine dependence, unspecified, uncomplicated

== ENCOUNTER 2019-10-08 13:55 | Inpatient (IN) | payer OTHER ==
[~2019-10-08] VITALS: Ht 172.7 cm; Wt 90.7 kg
[~2019-10-08 13:55] MED LIST changes: +GABAPENTIN100 MG PO; +NEURONTIN 300300 MG PO
[2019-10-08 14:41] LABS: BASOPHILS 0 % (0-2); EOSINOPHILS 0.6 % (0-7); HEMATOCRIT 46.7 % (42.0-54.0); IMMATURE GRANULOCYTES 0.3 % (0-5); LYMPHOCYTES 18.2 % (15-50); MCH 30.4 pg (26.0-34.0); MCHC 34.3 g/dL (31.0-37.0); MEAN PLATELET VOLUME 9.8 fL (7.4-10.4); MONOCYTES 5.8 % (2-11); NEUTROPHILS 75.1 % (40-80); PLATELET COUNT 285 10x3/uL (130-400); RBC 5.27 10x6/uL (4.20-6.10); RDW 14.4 % (11.5-14.5); WBC 14.4 10x3/uL (4.8-10.8)
[2019-10-08 14:54] LABS: KETONE NEGATIVE (NEGATIVE); NITRITE NEGATIVE (NEGATIVE); UROBILINOGEN NORMAL (NORMAL)
[2019-10-08 14:55] LABS: BILIRUBIN NEGATIVE (NEGATIVE)
[2019-10-08 15:00] VITALS: BP 156/100
[2019-10-08 15:03] LABS: CALC OSMOLALITY 278 mosm/kg (275-300); CALCIUM 8.9 mg/dL (8.5-10.1); CHLORIDE - SERUM 103 mmol/L (98-107); GLUCOSE 124 mg/dL (74-106); SODIUM 139 mmol/L (136-145); UREA NITROGEN 12 mg/dL (7-18)
[2019-10-08 15:05] LABS: CREATININE - SERUM 1.1 mg/dL (0.6-1.3); POTASSIUM - SERUM 3.3 mmol/L (3.5-5.1); eGFR NON AFRICAN AMERICAN 74 mL/min (90-120)
[2019-10-08 15:12] LABS: ALBUMIN 3.2 g/dL (3.4-5.0); ALKALINE PHOSPHATASE 75 U/L (30-120); AMYLASE - SERUM 23 U/L (25-115); BILIRUBIN - TOTAL 0.34 mg/dL (0.2-1.3); LIPASE 119 U/L (73-393)
[2019-10-08 15:14] LABS: MCV 88.6 fL (80.0-100.0)
[2019-10-08 15:20] LABS: ALT (SGPT) 27 U/L (10-68); TROPONIN-I < 0.017 ng/mL (0.000-0.060)
[2019-10-08 16:00] VITALS: BP 131/86
[2019-10-08 17:08] VITALS: BP 130/89
[2019-10-08 18:08] VITALS: BP 137/85
--- NOTE | 2019-10-08 18:44 | NUR ---
KINGSLEY 16 FR ESTABLISHED AND SECURED.
[2019-10-08 18:50] LABS: APTT 26.6 SECONDS (22.8-39.4); INR 0.89 (0.85-1.17)
--- NOTE | 2019-10-08 19:43 | NUR ---
ANSWERED PT'S CALL LIGHT, PT GIVEN PILLOW AND BLANKETS, DENIES FURTHER NEEDS AT THIS TIME. AT BEDSIDE. CALL LIGHT IN REACH. WILL CONTINUE TO MONITOR.
[2019-10-08 20:12] VITALS: BP 147/86
--- NOTE | 2019-10-08 21:14 | NUR ---
ANSWERED PT'S CALL LIGHT, HEAD OF BED ADJUSTED TO LEVEL OF COMFORT. AT BEDSIDE, WILL CONTINUE TO MONITOR.
[2019-10-08 23:39] LABS: UDS - AMPHET NEGATIVE QUAL (NEGATIVE); UDS - BARB NEGATIVE QUAL (NEGATIVE); UDS - BENZO NEGATIVE QUAL (NEGATIVE); UDS - COCAINE NEGATIVE QUAL (NEGATIVE); UDS - OPIATE NEGATIVE QUAL (NEGATIVE); UDS - PCP NEGATIVE QUAL (NEGATIVE); UDS - THC POSITIVE QUAL (NEGATIVE)
[2019-10-09 00:45] VITALS: BP 135/84
[2019-10-09 04:00] VITALS: BP 112/79
--- NOTE | 2019-10-09 07:10 | NUR ---
REC'D IN BED AWAKE AND ALERT. RESP EVEN AND UNLABORED WITH NO DISTRESS NOTED. CAN EXPRESS SOME NEEDS AND WANTS. PT ASK REPEATIVE QUESTION D/T SHORT TERM MEMORY LOSS. WAS WANTING TO LEAVE A.M.A BUT THEN DECIDED TO STAY. GIRLFRIEND AT BEDSIDE WHEN EVERYTHING WAS EXPLAINED TO PT WHY HE IS HERE IN THE HOSPITAL. ASSESSMENT COMPLETED. C/L IN REACH AT BEDSIDE.
[2019-10-09 08:00] VITALS: BP 124/67
--- NOTE | 2019-10-09 10:00 | NUR ---
PT WANTING TO LEAVE AMA AT THIS TIME WITH GIRLFRIEND AT BEDSIDE. THIS NURSE AND GIRLFRIEND TRIED TO REDIRECT PT WITH NOTED SUCCESS.
[2019-10-09 13:09] VITALS: Ht 172.7 cm; Wt 90.7 kg
[2019-10-09 13:26] VITALS: BP 114/72
--- NOTE | 2019-10-09 14:24 | NUR ---
I have reviewed this patient and I concur with the Shift Assessment completed by the Licensed Practical Nurse today this shift.
[2019-10-09 16:17] VITALS: BP 156/78
--- NOTE | 2019-10-09 17:21 | NUR ---
PT LEFT AMA AT THIS TIME CONTINUE TO YELL OUT IN ROOM THAT I AM LEAVING THIS [facility] [place] YOU GUYS ARE GOING TO KILL SOMEBODY. I HAVE BEEN HERE THREE DAY WITH NOTHING TO EAT AND I AM STARVING. PT WAS ONCE AGAIN EDUCATED ON WHY HE WAS HERE AND THE PURPOSE OF HE NG TUBE AND NPO ORDER. BRANDAN WAS NOTIFIED WHICH IS HIS EMERGENCY CONTACT. IV WAS DC WELL NG TUBE AT THIS TIME.
== END 2019-10-09 17:52 | disposition left against medical advice (07) | DRG 387 ==
LOC: D.ER 13:55 → D.MS 17:26
PROVIDERS: Emergency Medicine; ADMIT Family Medicine; ATTEND Family Medicine
DX: K50.012 Crohn's disease of small intestine with intestinal obstruction (principal); R73.9 Hyperglycemia, unspecified; E87.6 Hypokalemia; D72.829 Elevated white blood cell count, unspecified; K52.9 Noninfective gastroenteritis and colitis, unspecified; Z89.511 Acquired absence of right leg below knee